=== PATIENT | female | born 2000 | race Caucasian/White ===

== ENCOUNTER 2021-07-13 19:50 | Outpatient (CLI) | payer SELFPAY ==
[2021-07-13 20:12] VITALS: BP 130/83; PULSE 88; PULSE 96; O2SAT 99
--- NOTE | 2021-07-13 20:48 | OB.TRI.NOTE ---
HPI - General HPI Narrative ISABELLA ALVES, is a 20 F at 29w5d who presents with ctx's and DFM. She has noticed DFM today and regular ctx's q 7 min over the last 1 hour. Earlier in the day she was having painful ctx's for several hours but she could not time them. No vb or lof. Maternal Data Information BOBBY Calculator Estimated Delivery Date Method Current WG Current Estimate 09/23/21 Ultrasound #1 29w 5d Other Estimates 09/09/21 LMP (Certain) 31w 5d PFSH PFSH Medical History (Updated 07/13/21 @ 21:[address] 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 Home Medications Vitamin D (with calcium) 07/13/21 [History Last Taken Unknown] ascorbic acid (vitamin C) [Vitamin C] 500 mg PO DAILY 07/13/21 [History Last Taken Unknown] [id number] [] tab PO 07/13/21 [History Last Taken 07/12/21 21:00] Allergy/AdvReac Type Severity Reaction Status Date / Time lactose AdvReac Mild GI upset Verified 07/13/21 20:48 acetaminophen [From NyQuil] AdvReac Vomiting Verified 07/13/21 20:48 dextromethorphan AdvReac Vomiting Verified 07/13/21 20:48 [From NyQuil] doxylamine [From NyQuil] AdvReac Vomiting Verified 07/13/21 20:48 gluten AdvReac GI upset Verified 07/13/21 20:48 pseudoephedrine [From NyQuil] AdvReac Vomiting Verified 07/13/21 20:48 Physical Exam Const alert and no apparent distress General Appearance: comfortable Resp normal respiratory effort GI soft to palpation and non-tender NST FHR Rate Baby A Baseline: 145 Variability:: Moderate Accelerations:: 10 x 10 Decelerations:: None NST Reactive:: Appropriate for gestational age Uterine Activity:: no regular ctx's Assessment & Plan (1) 29 weeks gestation of : PLAN: Pt comfortable appearing FFN sent Cvx c/t/h FHT reassuring and appropriate for gest age. Pt now feeling FM Discharge home with follow up in office (2) Uterine contractions: (3) Decreased movement:
[2021-07-13 20:49] VITALS: BMI 32.1
[2021-07-13 21:45] LABS: Fetal Fibronectin Negative
[2021-07-13 21:56] VITALS: PULSE 95; O2SAT 99
[2021-07-13 21:57] VITALS: BP 119/66; PULSE 93
== END 2021-07-13 23:59 | disposition home or self-care (01) ==
LOC: WPOUT 20:02 → WP 20:03
PROVIDERS: PCP Physician Assistant; Visit Provider Obstetrics & Gynecology
DX: O36.8130 Decreased fetal movements, third trimester, not applicable or unspecified (principal); Z3A.29 29 weeks gestation of pregnancy
CPT/HCPCS: 59025; 59050; 82731; 99218; G0378

== ENCOUNTER 2021-08-08 17:37 | Outpatient (CLI) | payer SELFPAY ==
[2021-08-08 18:16] VITALS: BMI 32.8
[2021-08-08 18:30] VITALS: BP 124/75; PULSE 93
[2021-08-08 19:20] LABS: ROM Internal Control Test YES-OK TO RESULT pt. (Internal QC); ROM Patient Test Negative (Negative)
--- NOTE | 2021-08-09 07:32 | OB.TRI.NOTE ---
HPI - General HPI Narrative ISABELLA ALVES, is a 20 F G1 at 33.3 weeks gestation who presents with decreased movement. She completed kick counts at home and only felt 9 movements. She denies any cramps or contractions. Unsure if she is leaking fluid. Has felt more moist. 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 Home Medications Vitamin D (with calcium) 1 tab PO.IVFORM DAILY 07/13/21 [History Last Taken Unknown] ascorbic acid (vitamin C) [Vitamin C] 500 mg PO DAILY 07/13/21 [History Last Taken Unknown] [id number] [] 1 tab PO DAILY 07/13/21 [History Last Taken 07/12/21 21:00] Allergy/AdvReac Type Severity Reaction Status Date / Time lactose AdvReac Mild GI upset Verified 07/13/21 20:48 dextromethorphan AdvReac Vomiting Verified 07/13/21 20:48 [From NyQuil] doxylamine [From NyQuil] AdvReac Vomiting Verified 07/13/21 20:48 gluten AdvReac GI upset Verified 07/13/21 20:48 pseudoephedrine [From NyQuil] AdvReac Vomiting Verified 07/13/21 20:48 ROS Eyes Eyes: Denies blurry vision Cardiovascular Cardiovascular: Reports none; Denies chest pain at rest, chest pain with activity or dizziness Respiratory/Chest Respiratory/Chest: Denies cough or dyspnea Gastrointestinal Gastrointestinal: Reports none and other; Denies diarrhea or vomiting Genitourinary Genitourinary: Denies dysuria Musculoskeletal Musculoskeletal: Reports none Integumentary Integumentary: Reports none; Denies rash Neurologic Neurologic: Denies dizziness, headache(s) or other visual disturbances Psychiatric Psychiatric: Reports none Physical Exam Const alert and no apparent distress General Appearance: cooperative Orientation / Consciousness: awake Exam Limitations: no limitations HEENT normocephalic Eyes General Eye: normal appearance of both eyes Neck full ROM Chest inspection of chest normal Resp normal respiratory effort and normal air movement Effort and Inspection: symmetric chest movement Auscultation: clear to auscultation bilaterally Cardio regular rate GI soft to palpation, non-tender and non-distended Inspection: and other Back/Spine normal ROM Extremity full ROM, normal capillary refill and no calf tenderness Skin no rashes or lesions noted Neuro oriented x3 and CN's II-XII intact bilaterally Psych mental status grossly normal NST FHR Rate Baby A Baseline: 140 Variability:: Moderate Accelerations:: 15 x 15 Decelerations:: None NST Reactive:: Yes FHR Category:: Category I Assessment & Plan (1) Decreased movement: QUALIFIERS: Fetus number: single or unspecified fetus Trimester: third trimester Qualified Code(s): O36.8130 - Decreased movements, third trimester, not applicable or unspecified (2) 33 weeks gestation of : (3) Leakage of amniotic fluid: PLAN: Patient has felt movement since arrival to unit NST reactive- Cat. 1 Reassurance provided D/C home with follow up in office Dr. Marquis notified and is collaborating physician
== END 2021-08-08 19:28 | disposition home or self-care (01) ==
LOC: WPOUT 17:39 → WP 17:40
PROVIDERS: PCP Physician Assistant; Visit Provider Advanced Practice Midwife
DX: O36.8130 Decreased fetal movements, third trimester, not applicable or unspecified (principal); Z3A.33 33 weeks gestation of pregnancy
CPT/HCPCS: 59025; 59050; 84112; 99218; G0378

== ENCOUNTER 2021-09-19 22:15 | Inpatient (IN) | payer SELFPAY ==
[2021-09-19 21:34] VITALS: TEMP 36.4
[2021-09-19 21:35] VITALS: BP 139/89; PULSE 72
[2021-09-19 22:10] LABS: ROM Internal Control Test YES-OK TO RESULT pt. (Internal QC)
[2021-09-19 22:13] LABS: ROM Patient Test POSITIVE (Negative)
[2021-09-19] MEDS: Lactated Ringers 1,000 ML 50 ML IV (22:45)
[2021-09-19 22:49] VITALS: BMI 34.0
[2021-09-19 23:37] LABS: Absolute Lymphocyte Count 3.31 X10^3/uL (0.83-4.51); Absolute Neutrophil Count 9.2 X10^3/uL (2.0-7.7); Basophil# 0.05 X10^3/uL; Basophil% 0.4 % (0-1); Eosinophil# 0.11 X10^3/uL; Eosinophils% 0.8 % (0-5); Hematocrit 37.2 % (37-47); Hemoglobin 12.2 g/dL (12.0-15.0); Lymphocyte # 3.31 X10^3/ul (0.83-4.51); Lymphocyte % 24.7 % (19-41); Mean Corp Hgb Conc 32.8 g/dL (32-36); Mean Corpuscular Volume 88.6 fL (81-99); Mean Platelet Vol. 11.1 fl (6.2-12.0); Monocyte# 0.65 X10^3/uL; Monocyte% 4.9 % (0-10); NRBC Flagged by Analyzer 0 % (0-5); Neutrophil % 68.8 % (47-70); Platelet Count 230 K/mm3 (150-450); RBC Distribution Width CV 13.5 % (11.6-14.6); RBC Distribution Width SD 43.4 fl (35.1-43.9); White Blood Count 13.4 K/mm3 (4.4-11.0)
[2021-09-19] MEDS: Ondansetron 4 MG/2 ML Vial IV (23:47)
[2021-09-19 23:54] VITALS: PULSE 69
[2021-09-20] VITALS (33 sets, daily range): BP systolic 114–161; BP diastolic 62–97; PULSE 70–96; RESP 16; TEMP 35.9–36.8; O2SAT 95–100
[2021-09-20] MEDS: Lactated Ringers 500 ML 999 ML IV (00:13)
[2021-09-20] MEDS: fentaNYL-bupivacaine (epidural) 100 ML BAG EPIDURAL (01:03)
[2021-09-20] MEDS: Oxytocin 30 units/NS 500 ml 30 UNITS/500 ML IV.SOLN 334 UNITS IV (02:04)
--- NOTE | 2021-09-20 02:17 | PCM.HP.OB ---
HPI - General General Date of Admission: 09/19/21 HPI Narrative ISABELLA ALVES, is a 21 F who presents at 39w4d by US in active labor. Spontaneous rupture of membranes immediately upon arrival to labor and delivery. Maternal Data Information BOBBY Calculator Estimated Delivery Date Method Current WG Current Estimate 09/23/21 Ultrasound #1 39w 4d Other Estimates 09/09/21 LMP (Certain) 41w 4d PFSH PFSH Medical History (Updated 09/20/21 @ 02:47 by Ruth Rocha CNM) Anemia Anxiety Cervical laceration Depression Heartburn History of echocardiogram History of epidural anesthesia History of episiotomy infection Seizure in childhood Spondylitis, ankylosing Symphysis pubis disruption Home Medications [id number] [] 1 tab PO DAILY 07/13/21 [History Last Taken 09/19/21] Allergy/AdvReac Type Severity Reaction Status Date / Time lactose AdvReac Mild GI upset Verified 08/27/21 08:03 dextromethorphan AdvReac Vomiting Verified 08/27/21 08:03 [From NyQuil] doxylamine [From NyQuil] AdvReac Vomiting Verified 08/27/21 08:03 gluten AdvReac GI upset Verified 08/27/21 08:03 pseudoephedrine [From NyQuil] AdvReac Vomiting Verified 08/27/21 08:03 Surgical History (Updated 08/27/21 @ 08:11 by Maye William) Hx of esophagogastroduodenoscopy Social History Smoking Status: Never smoker History Elective abortions Hx Para 1 Spontaneous abortions Hx # Term Pregnancies Ectopic pregnancies Hx # Pregnancies Multiple births # of living children NST FHR Rate Baby A Baseline: 125 Variability:: Moderate Accelerations:: 15 x 15 Decelerations:: Variable FHR Category:: Category II Uterine Activity:: every 1-2 minutes, strong Vital Signs Vital Signs Vital Signs: 09/19/21 21:34 09/19/21 21:35 09/20/21 00:31 Temperature 97.6 F L Temperature Source Temporal Pulse Rate 72 73 Blood Pressure 139/89 H 129/73 H BP Systolic 139 129 BP Diastolic 89 73 Pulse Ox 100 09/20/21 00:36 09/20/21 00:41 09/20/21 00:46 Temperature Temperature Source Pulse Rate 77 80 80 Blood Pressure 132/87 H 131/84 H 121/81 H BP Systolic 132 131 121 BP Diastolic 87 84 81 Pulse Ox 99 99 100 09/20/21 00:51 09/20/21 00:57 09/20/21 00:58 Temperature 97.7 F L Temperature Source Temporal Pulse Rate 91 83 71 Blood Pressure 125/80 H 136/66 H BP Systolic 125 136 BP Diastolic 80 66 Pulse Ox 100 95 09/20/21 01:02 09/20/21 01:03 09/20/21 01:06 Temperature Temperature Source Pulse Rate 81 77 80 Blood Pressure 129/66 H 128/68 H BP Systolic 129 128 BP Diastolic 66 68 Pulse Ox 95 09/20/21 01:08 09/20/21 01:12 09/20/21 01:13 Temperature Temperature Source Pulse Rate 76 77 86 Blood Pressure 120/77 BP Systolic 120 BP Diastolic 77 Pulse Ox 98 97 09/20/21 01:17 09/20/21 01:21 09/20/21 01:27 Temperature Temperature Source Pulse Rate 75 86 81 Blood Pressure 137/88 H 142/97 H 140/87 H BP Systolic 137 142 140 BP Diastolic 88 97 87 Pulse Ox 09/20/21 01:32 09/20/21 02:14 Temperature Temperature Source Pulse Rate 85 96 Blood Pressure 161/90 H 136/89 H BP Systolic 161 136 BP Diastolic 90 89 Pulse Ox Weight Weight: 192 lb Body Mass Index (BMI) 34.0 Physical Exam Const alert and oriented x3 General Appearance: cooperative Orientation / Consciousness: awake, oriented to person, oriented to place and oriented to time Exam Limitations: no limitations HEENT normocephalic Head and Scalp: normal to inspection, normocephalic and atraumatic Face and Sinus: normal facial exam Eyes General Eye: normal appearance of both eyes Neck full ROM Chest Chest: symmetrical chest wall rise Resp normal respiratory effort and normal air movement Auscultation: clear to auscultation bilaterally Cardio regular rate, regular rhythm, S1 normal heart sound, S2 normal heart sound, no murmurs, no rub, no gallops and no clicks GI non-tender appearance of the vagina normal Manual OB Exam: estimated gestational size appropriate, presentation cephalic, dilated 10 cm, effaced 100%, station 0 and other Bulging bag of water, AROM with large amount of clear fluid Back/Spine normal ROM Extremity normal to inspection and full ROM Skin no rashes or lesions noted Neuro oriented x3, CN's II-XII intact bilaterally and moves all extremities Sensorium / Orientation: awake, alert and oriented to person Labs Labs Labs: Blood Type A POSITIVE Antibody Screen NEGATIVE Hct 37.2 % (37-47) Hgb 12.2 g/dL (12.0-15.0) HIV negative RPR negative A Positive, antibody screen negative Hep C negative HBsAG negative Rubella Immune GC/CT negative GBS positive Assessment & Plan (1) Active labor at term: (2) History of depression: (3) Hx of maternal cervical laceration, currently : (4) History of anxiety: PLAN: 1) Admit to labor and delivery 2) Routine labs and covid testing 3) GBS positive, PCN per protocol 4) Epidural for pain management 5) collaborative physician and notified of patient status
--- NOTE | 2021-09-20 02:17 | EX.PCM.OBRPT ---
Assessment & Plan (1) Vaginal delivery: (2) History of anxiety: (3) History of depression: (4) Lactating mother: (5) First degree perineal laceration: Maternal Data Information BOBBY Calculator Estimated Delivery Date Method Current WG Current Estimate 09/23/21 Ultrasound #1 39w 4d Other Estimates 09/09/21 LMP (Certain) 41w 4d Vaginal Delivery Maternal Presentation Maternal Presentation: Active Labor Operative Information Date of Procedure: 09/20/21 Pre-Operative Diagnosis: active labor Post-Operative Diagnosis: Surgery / Procedure Performed: Spontaneous Vaginal Delivery Type of Anesthesia: Epidural Estimated Blood Loss: 300 ml Time of Delivery: 02:01 Findings Description of Procedure: Progressed to complete with strong urge to push. Epidural for pain management. of viable female over first degree perineal laceration. APGARS 9,9. Infant head delivered with body immediately forthcoming. placed on maternal abdomen, strong cry, mouth and nares suctioned for secretions. Pitocin started for active 3rd stage management. Cord clamped and cut after pulsations ceased by FOB. Placenta delivered via geri intact, 3 vessel cord. Perineum inspected and revealed 1st degree perineal laceration, repaired under epidural analgesia with 3.0vicryl rapide. Vaginal sweep completed by me, sponge and instrument count correct. Fundus firm and EBL 300ml. Mom and baby stable, planning to breastfeed. Family bonding well. notified of delivery. Presentation: Vertex and SRINIVAS Amniotic Membrane Rupture Type: Artificial Amniotic Fluid Description: Clear Placental Delivery Description: Spontaneous Placenta Disposition: [facility] Cord Vessel Description: 3 Vessels Cord Entanglement: None Infant A Gender: Female (1 minute): 9 (5 minute): 9 Delayed Cord Clamping: Yes Post Vaginal Delivery Medications Given After Delivery: IV Pitocin Episiotomy Description: None Laceration: 1st degree Complication Complications: None
[2021-09-20] MEDS: Ibuprofen 600 MG Tablet PO ×2 (04:54→20:01)
[2021-09-21 01:58] VITALS: BP 124/73; PULSE 73
[2021-09-21 02:00] VITALS: BP 124/73; PULSE 70; RESP 16; TEMP 36.2; O2SAT 97
[2021-09-21 06:55] LABS: Hematocrit 31.8 % (37-47); Hemoglobin 10.3 g/dL (12.0-15.0); Mean Corp Hgb Conc 32.4 g/dL (32-36); Mean Corpuscular Hgb 29.4 pg (27.0-32.0); Mean Corpuscular Volume 90.9 fL (81-99); Mean Platelet Vol. 10.7 fl (6.2-12.0); Platelet Count 185 K/mm3 (150-450); RBC Distribution Width CV 13.7 % (11.6-14.6); RBC Distribution Width SD 44.9 fl (35.1-43.9); White Blood Count 12.2 K/mm3 (4.4-11.0)
[2021-09-21 08:48] VITALS: BP 135/82; PULSE 85; O2SAT 98
[2021-09-21 08:49] VITALS: BP 135/82; PULSE 89; RESP 16; TEMP 36.1; O2SAT 100
--- NOTE | 2021-09-21 10:00 | PCM.PN.OB ---
Subjective Subjective Doing well per patient and nursing staff. Ambulating and taking PO without difficulty. Voiding and passing flatus. Pain controlled. , services for assistance. Denies headache, visual changes, chest pain, shortness of breath, leg pain or increased bleeding. Lochia normal. Objective Data Objective Data Vital Signs: Vital Signs Temp Pulse Resp BP Pulse Ox 97.0 F L 89 16 135/82 H 100 09/21/21 08:49 09/21/21 08:49 09/21/21 08:49 09/21/21 08:49 09/21/21 08:49 Oxygen Delivery Method Room Air Weight: 192 lb Body Mass Index (BMI) 34.0 Intake & Output: Intake and Output for Last 24 Hours 09/19/21 09/20/21 09/21/21 23:59 23:59 23:59 Intake Total 105 / 105 1298.20 / 1298.20 Output Total 1100 / 1100 Balance 105 / 105 198.20 / 198.20 Lab / Micro Data Result Diagrams: 09/21/21 06:45 Labs: Laboratory Results - last 24 hr 09/21/21 06:45: WBC 12.2 H, RBC 3.50 L, Hgb 10.3 L, Hct 31.8 L, MCV 90.9, MCH 29.4, MCHC 32.4, RDW Std Deviation 44.9 H, RDW Coeff of Jeanne 13.7, Plt Count 185, MPV 10.7 Micro: Microbiology 09/19/21 23:26 Nasal Secretion SARS-CoV-2 Antigen (Rapid) - Final ROS Constitutional Constitutional: Reports systems reviewed and no addt'l complaints, except as documented; Denies headache(s) Eyes Eyes: Denies acute decrease in peripheral vision, blurry vision or change in vision ENT HEENT: Reports systems reviewed and no addt'l complaints, except as documented Cardiovascular Cardiovascular: Denies chest pain or dizziness Respiratory/Chest Respiratory/Chest: Denies cough, dyspnea, dyspnea on exertion, shortness of breath at rest or shortness of breath with exertion Gastrointestinal Gastrointestinal: Denies abdominal pain, diarrhea, nausea or vomiting Genitourinary Genitourinary: Denies abdominal discomfort Musculoskeletal Musculoskeletal: Denies limited range of motion Integumentary Integumentary: Reports systems reviewed and no addt'l complaints, except as documented Neurologic Neurologic: Reports systems reviewed and no addt'l complaints, except as documented Psychiatric Psychiatric: Reports systems reviewed and no addt'l complaints, except as documented Endocrine Endocrinology: Reports systems reviewed and no addt'l complaints, except as documented Hematologic/Lymphatic Hematologic/Lymphatic: Reports systems reviewed and no addt'l complaints, except as documented Allergic/Immunologic Allergic/Immunologic: Reports systems reviewed and no addt'l complaints, except as documented Physical Exam Const alert and oriented x3 General Appearance: cooperative Orientation / Consciousness: awake, oriented to person, oriented to place and oriented to time Exam Limitations: no limitations HEENT normocephalic Head and Scalp: normal to inspection, normocephalic and atraumatic Face and Sinus: normal facial exam Eyes General Eye: normal appearance of both eyes Neck full ROM Chest Chest: symmetrical chest wall rise Resp normal respiratory effort and normal air movement Auscultation: clear to auscultation bilaterally Cardio regular rate, regular rhythm, S1 normal heart sound, S2 normal heart sound, no murmurs, no rub, no gallops and no clicks GI normal to inspection, nondistended, normoactive bowel sounds and non-tender appearance of the vagina normal Bladder / Kidney Exam: no CVA tenderness Back/Spine normal ROM Extremity normal to inspection and full ROM Skin no rashes or lesions noted Neuro oriented x3, CN's II-XII intact bilaterally and moves all extremities Sensorium / Orientation: awake, alert and oriented to person Motor Exam: clonus absent Deep Tendon Reflexes: Rt Patellar (L4): 2+ and Lt Patellar (L4): 2+ Assessment & Plan (1) Vaginal delivery: (2) Lactating mother: (3) First degree perineal laceration: PLAN: 1) Routine care 2) support 3) Pain management 4) Follow up in 2 weeks and 6 weeks 5) D/C home
--- NOTE | 2021-09-21 10:03 | DS.PCM_ITS ---
Providers Date of Admission: 09/19/21 Primary Care Physician: NINA Bradshaw Reason For Visit: VAGINAL DELIVERY Diagnosis Discharge Diagnosis (1) Vaginal delivery: Status: Acute Code(s): O80 - Encounter for full-term uncomplicated delivery (2) Lactating mother: Status: Acute Code(s): Z39.1 - Encounter for care and examination of lactating mother (3) First degree perineal laceration: Status: Acute Code(s): O70.0 - First degree perineal laceration during delivery Medications at Discharge Home Medications [id number] 1 tab PO DAILY 07/13/21 acetaminophen 1,000 mg PO Q6H PRN PRN #0 tab 09/21/21 ibuprofen 600 mg PO Q6H PRN PRN #0 tab 09/21/21 Weight / BMI Weight Weight: 192 lb Body Mass Index (BMI) 34.0 ABG / Lab / Microbiology Data Result Diagrams: 09/21/21 06:45 Laboratory: Laboratory Results - last 24 hr 09/21/21 06:45: WBC 12.2 H, RBC 3.50 L, Hgb 10.3 L, Hct 31.8 L, MCV 90.9, MCH 29.4, MCHC 32.4, RDW Std Deviation 44.9 H, RDW Coeff of Jeanne 13.7, Plt Count 185, MPV 10.7 Microbiology: Microbiology 09/19/21 23:26 Nasal Secretion SARS-CoV-2 Antigen (Rapid) - Final Meaningful Use Info Meaningful Use Diagnoses (Choose all that apply): None applicable Discharge Plan Admission Admit Date/Time: 09/19/21 22:15 Primary Reason for Your Visit: vaginal delivery Attending Provider: Ruth Rocha Primary Care Provider: Nataliia Morrison Discharge Orders/Prescriptions Prescriptions: New acetaminophen 500 mg Tablet 1,000 mg PO Q6H PRN PRN (Reason: Pain 1-10 Or Fever) Qty: 0 RF: 0 ibuprofen 600 mg Tablet 600 mg PO Q6H PRN PRN (Reason: Pain Score 1-3) Qty: 0 RF: 0 Continued [id number] 1 mg Tablet 1 tab PO DAILY RF: 0 Referrals / Follow Up: Ruth Rocha CNM [Certified Nurse Registered Route Associate] - (follow up in 2 weeks for virtual visit and in 6 weeks ) Morrison,Nataliia PA, PA [Primary Care Provider] - Disposition Disposition (needs filled in before D/C Order can be placed): Home, Self Care
[2021-09-21] MEDS: Senna/Docusate Sodium 1 Tablet PO (11:46)
[2021-09-21] MEDS: Ibuprofen 600 MG Tablet PO (13:40)
--- NOTE | 2021-09-25 16:28 | NURSING ---
On follow up phone call, felt she was very supported. Did not deliver here first and this experience was much better and liked all her nursed.
== END 2021-09-21 15:14 | disposition home or self-care (01) | DRG 806 ==
LOC: WP 09-20 02:15 → WPOUT 09-21 16:31
PROVIDERS: Admitting Provider Advanced Practice Midwife; PCP Physician Assistant; Visit Provider Advanced Practice Midwife
DX: O99.344 Other mental disorders complicating childbirth (principal); Z37.0 Single live birth; O98.82 Other maternal infectious and parasitic diseases complicating childbirth; F41.9 Anxiety disorder, unspecified; B95.1 Streptococcus, group B, as the cause of diseases classified elsewhere; F32.A Depression, unspecified; O76 Abnormality in fetal heart rate and rhythm complicating labor and delivery; O70.0 First degree perineal laceration during delivery; Z3A.39 39 weeks gestation of pregnancy; Z39.1 Encounter for care and examination of lactating mother
CPT/HCPCS: 59025; 59050; 84112; 85025; 85027; 86850; 86900; 86901; 87426; 99218; J7120; G0378; J2405